=== PATIENT | female | born 1960 | race Caucasian/White ===

== ENCOUNTER 2022-12-31 22:56 | Observation (INO) | payer OTHER ==
[2023-01-01] MEDS ORDERED: Dextrose 5% in Water 1,000 ML IV PRN (02:54)
[2023-01-01] MEDS ORDERED: Acetaminophen 325 MG TAB PO PRN (02:54)
[2023-01-01] MEDS ORDERED: Dextrose 50% Abboject 50 ML SYRINGE SLOW IVP PRN (02:54)
[2023-01-01] MEDS ORDERED: Ondansetron ODT 4 MG TAB PO PRN (02:54)
[2023-01-01] MEDS ORDERED: Acetaminophen 650 MG Suppository PR PRN (02:54)
[2023-01-01] MEDS ORDERED: Nitroglycerin 0.4 MG TAB (25 Tab Bottle) SL PRN (02:54)
[2023-01-01] MEDS ORDERED: HumaLOG 300 UNITS/3 ML VIAL SC PRN (02:54)
[2023-01-01 03:22] VITALS: BMI 36.1
[2023-01-01] MEDS: Ondansetron PF 4 MG/2 ML Vial IVP PRN ×2 (03:35→18:35)
[2023-01-01] MEDS: Fioricet 325/50/40 mg Tablet PO PRN ×2 (04:19→20:26)
[2023-01-01] MEDS ORDERED: hydrALAZINE 20 MG/ML VIAL SLOW IVP PRN (04:26)
[2023-01-01 05:25] LABS: #Basophils 0.1 thou/uL (0.0-0.2); #Eosinphils 0.2 thou/uL (0.0-0.7); #Lymphocytes 1.6 thou/uL (1.20-3.40); #Monocytes 0.5 thou/uL (0.11-0.59); #Neutrophils 4.4 thou/uL (1.40-6.50); %Basophils 0.8 % (0.0-1.0); %Eosinophils 2.7 % (0.0-10.0); %Lymphocytes 23.5 % (21.0-51.0); %Monocytes 7.3 % (0.0-10.0); %Neutrophils 65.8 % (42.0-75.0); Hemoglobin 10.5 g/dL (12.0-16.0); Mean Corpuscular HGB CONC 32.6 g/dL (32.0-36.0); Mean Corpuscular Hemoglobin 28.6 pg (27.0-31.0); Mean Corpuscular Volume 87.6 fl (78.0-98.0); Mean Platelet Volume 7.9 fL (7.4-10.4); Platelet Count 238 10x3/uL (130-400); RBC Distribution Width 13.8 % (11.5-14.5); Red Blood Cell (RBC) Count 3.69 mill/uL (4.20-5.40); White Blood Cell (WBC) Count 6.7 10x3/uL (4.8-10.8)
[2023-01-01 05:47] LABS: Anion Gap 14 mmol/L (10-20); BUN (Urea Nitrogen) 17 mg/dL (9.8-20.1); Calc. Creatinine Clearance 110 mL/min (70-130); Calcium 8.4 mg/dL (7.8-10.44); Carbon Dioxide 24 mmol/L (23-31); Chloride 101 mmol/L (98-107); Estimated GFR 95; Glucose 225 mg/dL (80-115); Potassium 3.2 mmol/L (3.5-5.1); Sodium 136 mmol/L (136-145)
[2023-01-01 05:52] LABS: Troponin I 0.012 ng/mL (< 0.028)
[2023-01-01] MEDS ORDERED: Electrolyte Replacement Protocol 1 EACH FS SCH (06:30)
[2023-01-01] MEDS: HumaLOG 300 UNITS/3 ML VIAL SC PRN ×2 (06:30→21:18)
[2023-01-01] MEDS ORDERED: diphenhydrAMINE 50 MG in Sodium Chloride 0.9% 50 ML IVPB SCH (08:00)
[2023-01-01] MEDS ORDERED: Butorphanol Tartrate 1 MG/ML VIAL SLOW IVP PRN (08:06)
[2023-01-01] MEDS ORDERED: SUMAtriptan Succinate 6 MG/0.5 ML VIAL SC SCH ×2 (08:15→16:45)
[2023-01-01] MEDS: Prazosin HCl 1 MG CAP PO SCH (08:37)
[2023-01-01] MEDS: Potassium Chloride 20 MEQ in Premix Bag 1 BAG IVPB SCH ×2 (08:39→11:18)
[2023-01-01] MEDS: Aspirin 81 mg Enteric Coated Tablet PO SCH (08:49)
[2023-01-01] MEDS: Escitalopram Oxalate 10 mg Tablet PO SCH (08:49)
[2023-01-01] MEDS: busPIRone HCl 10 MG TAB PO SCH ×2 (08:49→20:27)
[2023-01-01] MEDS ORDERED: Insulin Glargine 30 UNITS/0.3 ML VIAL SC SCH ×3 (09:00→21:00)
[2023-01-01] MEDS ORDERED: Non-Formulary Item 1 EACH (Escitalopram Oxalate [Escitalopram Oxalate] 5 MG Tablet) PO SCH (09:00)
[2023-01-01] MEDS: Lisinopril 10 MG TAB PO SCH (09:55)
[2023-01-01] MEDS ORDERED: Dexamethasone 4 mg/ml Vial SLOW IVP SCH (16:45)
[2023-01-01] MEDS: FENTANYL 50 MCG/ML 1 ML VIAL SLOW IVP PRN ×2 (17:44→21:31)
[2023-01-01] MEDS: Promethazine HCl 25 MG in Sodium Chloride 0.9% 50 ML IVPB PRN (20:25)
[2023-01-01] MEDS: tiZANidine HCl 4 MG TAB PO PRN (20:27)
[2023-01-01] MEDS ORDERED: QUEtiapine 25 MG TAB PO SCH (21:00)
[2023-01-01] MEDS ORDERED: Atorvastatin Calcium 40 MG TAB PO SCH (21:00)
[2023-01-01] MEDS ORDERED: Non-Formulary Item 1 EACH (Quetiapine Fumarate [Seroquel] 50 MG Tablet) PO SCH (21:00)
[2023-01-02] MEDS: FENTANYL 50 MCG/ML 1 ML VIAL SLOW IVP PRN ×3 (02:02→12:38)
[2023-01-02 04:56] LABS: #Lymphocytes 0.7 thou/uL (1.20-3.40); #Monocytes 0.2 thou/uL (0.11-0.59); #Neutrophils 6.2 thou/uL (1.40-6.50); %Eosinophils 0.2 % (0.0-10.0); %Lymphocytes 9.7 % (21.0-51.0); %Monocytes 2.3 % (0.0-10.0); %Neutrophils 87.8 % (42.0-75.0); Mean Corpuscular HGB CONC 32.1 g/dL (32.0-36.0); Mean Corpuscular Hemoglobin 28.4 pg (27.0-31.0); Mean Corpuscular Volume 88.6 fl (78.0-98.0); Platelet Count 251 10x3/uL (130-400); RBC Distribution Width 13.6 % (11.5-14.5); Red Blood Cell (RBC) Count 3.86 mill/uL (4.20-5.40); White Blood Cell (WBC) Count 7.1 10x3/uL (4.8-10.8)
[2023-01-02 05:03] LABS: Hemoglobin A1c 9.8 % (4.0-6.0)
[2023-01-02 05:24] LABS: Anion Gap 15 mmol/L (10-20); BUN (Urea Nitrogen) 16 mg/dL (9.8-20.1); Calc. Creatinine Clearance 94 mL/min (70-130); Calcium 8.6 mg/dL (7.8-10.44); Carbon Dioxide 19 mmol/L (23-31); Cardiac Risk 2.3 (Less than 4.5); Chloride 102 mmol/L (98-107); Cholesterol 168 mg/dl (< 200 Desired); Estimated GFR 79; HDL Cholesterol 74 mg/dL (>60 Neg Risk); LDL Cholesterol, Calculated 83 mg/dL; Magnesium 1.7 mg/dL (1.6-2.6); Potassium 4.4 mmol/L (3.5-5.1); Sodium 132 mmol/L (136-145); Triglycerides 55 mg/dL (Less than 150)
[2023-01-02 05:29] LABS: Glucose 508 mg/dL (80-115)
[2023-01-02] MEDS: HumaLOG 300 UNITS/3 ML VIAL SC PRN ×2 (06:00→15:07)
[2023-01-02] MEDS ORDERED: NPH, Human Insulin Isophane 300 UNIT/3 ML VIAL SC SCH (07:30)
[2023-01-02] MEDS ORDERED: Magnesium 2 GM/50 ML(in water) 2 GM in Premix Bag 1 BAG IVPB SCH (08:00)
[2023-01-02] MEDS: busPIRone HCl 10 MG TAB PO SCH (09:29)
[2023-01-02] MEDS: Lisinopril 10 MG TAB PO SCH (09:29)
[2023-01-02] MEDS: Aspirin 81 mg Enteric Coated Tablet PO SCH (09:29)
[2023-01-02] MEDS: Escitalopram Oxalate 10 mg Tablet PO SCH (09:29)
[2023-01-02] MEDS: Prazosin HCl 1 MG CAP PO SCH (09:37)
[2023-01-02] MEDS: Promethazine HCl 25 MG in Sodium Chloride 0.9% 50 ML IVPB PRN (09:38)
[2023-01-02] MEDS: tiZANidine HCl 4 MG TAB PO PRN (09:45)
[2023-01-02 16:34] VITALS: BP 117/67; TEMP 97.8
[2023-01-02] MEDS ORDERED: Insulin Glargine 30 UNITS/0.3 ML VIAL SC SCH (21:00)
[2023-01-03] MEDS ORDERED: predniSONE 20 MG TAB PO SCH (08:00)
== END 2023-01-02 16:35 | disposition home or self-care (01) ==
LOC: 2NO 01-01 02:22
PROVIDERS: ADMIT Student in an Organized Health Care Education/Training Program; ATTEND Family Medicine
DX: R07.89 Other chest pain (principal); R53.1 Weakness; I69.954 Hemiplegia and hemiparesis following unspecified cerebrovascular disease affecting left non-dominant side; E87.6 Hypokalemia; Z20.822 Contact with and (suspected) exposure to COVID-19; I10 Essential (primary) hypertension; E78.5 Hyperlipidemia, unspecified; E11.9 Type 2 diabetes mellitus without complications; M79.7 Fibromyalgia; G89.29 Other chronic pain; G43.909 Migraine, unspecified, not intractable, without status migrainosus; Z88.5 Allergy status to narcotic agent; Z88.8 Allergy status to other drugs, medicaments and biological substances; Z79.4 Long term (current) use of insulin; Z79.84 Long term (current) use of oral hypoglycemic drugs; Z79.899 Other long term (current) drug therapy
CPT/HCPCS: 36415; 36416; 70551; 78452; 80048; 80061; 83036; 83735; 84443; 84484; 85025; 93017; 96365; 96372; 96375; 96376; A9500; G0378; J1100; J1200; J1815; J2405; J2550; J3010; J3030; J3475; J3480; Q0162; U0003; U0005

== ENCOUNTER 2023-01-08 17:37 | Inpatient (IN) | payer OTHER ==
[2023-01-08 18:07] LABS: #Eosinphils 0.1 thou/uL (0.0-0.7); #Lymphocytes 1.9 thou/uL (1.20-3.40); #Monocytes 0.5 thou/uL (0.11-0.59); #Neutrophils 5.3 thou/uL (1.40-6.50); %Basophils 0.2 % (0.0-1.0); %Eosinophils 1.3 % (0.0-10.0); %Lymphocytes 23.7 % (21.0-51.0); %Monocytes 6.4 % (0.0-10.0); %Neutrophils 68.4 % (42.0-75.0); Mean Corpuscular HGB CONC 31.6 g/dL (32.0-36.0); Mean Corpuscular Hemoglobin 27.9 pg (27.0-31.0); Mean Corpuscular Volume 88.5 fl (78.0-98.0); Platelet Count 286 10x3/uL (130-400); RBC Distribution Width 13.6 % (11.5-14.5); Red Blood Cell (RBC) Count 3.93 mill/uL (4.20-5.40); White Blood Cell (WBC) Count 7.8 10x3/uL (4.8-10.8)
[2023-01-08 18:19] LABS: INR-International Normal Ratio 0.9; Prothrombin Time 12.3 sec (12.0-14.7)
[2023-01-08 18:41] LABS: ALT (SGPT) 13 U/L (8-55); AST (SGOT) 15 U/L (5-34); Albumin 3.7 g/dL (3.4-4.8); Alkaline Phosphatase 87 U/L (40-110); Anion Gap 14 mmol/L (10-20); BUN (Urea Nitrogen) 16 mg/dL (9.8-20.1); Bilirubin, Total 0.3 mg/dL (0.2-1.2); CK (CPK) 39 U/L (29-168); Calc. Creatinine Clearance 0 mL/min (70-130); Calcium 9.2 mg/dL (7.8-10.44); Carbon Dioxide 22 mmol/L (23-31); Chloride 102 mmol/L (98-107); Estimated GFR 81; Globulin 2.6 g/dL (2.4-3.5); Glucose 194 mg/dL (80-115); Potassium 3.4 mmol/L (3.5-5.1); Protein, Total 6.3 g/dL (5.8-8.1); Sodium 135 mmol/L (136-145)
[2023-01-08] MEDS ORDERED: Tenecteplase 50 MG ONE (19:41)
[2023-01-08] MEDS ORDERED: Ondansetron PF 4 MG/2 ML Vial IVP PRN (20:15)
[2023-01-08 20:55] VITALS: BMI 38.7
[2023-01-08] MEDS ORDERED: Labetalol HCl 100 MG/20 ML VIAL SLOW IVP PRN (20:56)
[2023-01-08] MEDS ORDERED: [UNRECOGNIZED DRUG - REMARK] FS SCH (21:01)
[2023-01-08] MEDS ORDERED: niCARdipine 25 MG in Sodium Chloride 0.9% 250 ML 250 ML IVPB PRN (21:01)
[2023-01-08] MEDS ORDERED: HumaLOG 300 UNITS/3 ML VIAL SC SCH (21:30)
[2023-01-08] MEDS ORDERED: Electrolyte Replacement Protocol FS PRN (21:30)
[2023-01-08] MEDS ORDERED: Morphine 2 MG/ML VIAL SLOW IVP PRN (23:59)
[2023-01-09] MEDS: hydrALAZINE 20 MG/ML VIAL SLOW IVP PRN ×2 (00:39→11:07)
[2023-01-09] MEDS: Morphine 2 MG/ML VIAL SLOW IVP PRN ×5 (02:20→21:02)
[2023-01-09] MEDS ORDERED: Potassium Bicarbonate/Cit Ac 20 MEQ TAB PO SCH (08:15)
[2023-01-09] MEDS: Famotidine/PF 20 mg/2ml Vial SLOW IVP SCH ×2 (08:18→21:03)
[2023-01-09] MEDS ORDERED: FLU VACC QS2022-23(6MO UP)/PF 60 MCG/0.5 ML SYRINGE IM ONE (09:00)
[2023-01-09] MEDS: Ondansetron PF 4 MG/2 ML Vial IVP PRN ×2 (12:51→21:03)
[2023-01-09] MEDS: Fioricet 325/50/40 mg Tablet PO PRN ×2 (13:05→16:21)
[2023-01-09 17:46] LABS: Potassium 3.5 mmol/L (3.5-5.1)
[2023-01-09] MEDS ORDERED: Atorvastatin Calcium 40 MG TAB PO SCH (21:00)
[2023-01-09] MEDS: HumaLOG 300 UNITS/3 ML VIAL SC PRN (23:07)
[2023-01-10] MEDS: HumaLOG 300 UNITS/3 ML VIAL SC PRN ×2 (02:21→05:10)
[2023-01-10 04:21] LABS: #Eosinphils 0.1 thou/uL (0.0-0.7); #Monocytes 0.6 thou/uL (0.11-0.59); #Neutrophils 4.8 thou/uL (1.40-6.50); %Basophils 0.3 % (0.0-1.0); %Eosinophils 1.9 % (0.0-10.0); %Lymphocytes 15.1 % (21.0-51.0); %Neutrophils 73.7 % (42.0-75.0); Hemoglobin 11.4 g/dL (12.0-16.0); Mean Corpuscular HGB CONC 32.8 g/dL (32.0-36.0); Mean Corpuscular Hemoglobin 28.9 pg (27.0-31.0); Mean Corpuscular Volume 87.9 fl (78.0-98.0); Mean Platelet Volume 7.8 fL (7.4-10.4); Platelet Count 270 10x3/uL (130-400); RBC Distribution Width 13.6 % (11.5-14.5); Red Blood Cell (RBC) Count 3.96 mill/uL (4.20-5.40); White Blood Cell (WBC) Count 6.5 10x3/uL (4.8-10.8)
[2023-01-10 04:43] LABS: Anion Gap 10 mmol/L (10-20); BUN (Urea Nitrogen) 11 mg/dL (9.8-20.1); Calc. Creatinine Clearance 101 mL/min (70-130); Carbon Dioxide 28 mmol/L (23-31); Chloride 99 mmol/L (98-107); Estimated GFR 82; Glucose 298 mg/dL (80-115); Potassium 3.4 mmol/L (3.5-5.1); Sodium 134 mmol/L (136-145)
[2023-01-10] MEDS: Fioricet 325/50/40 mg Tablet PO PRN ×3 (05:14→15:44)
[2023-01-10] MEDS ORDERED: HumaLOG 300 UNITS/3 ML VIAL SC PRN (07:50)
[2023-01-10] MEDS ORDERED: Potassium Chloride 20 MEQ TAB PO SCH (08:00)
[2023-01-10] MEDS: Morphine 2 MG/ML VIAL SLOW IVP PRN (08:03)
[2023-01-10] MEDS ORDERED: Dextrose 5% in Water 1,000 ML IV PRN (08:15)
[2023-01-10] MEDS ORDERED: Dextrose 50% Abboject 50 ML SYRINGE IVP PRN (08:15)
[2023-01-10] MEDS ORDERED: Aspirin Chewable 81 MG TAB PO SCH (09:00)
[2023-01-10] MEDS: Famotidine/PF 20 mg/2ml Vial SLOW IVP SCH (09:51)
[2023-01-10 11:56] VITALS: BP 116/85
[2023-01-10 12:30] VITALS: TEMP 97.6
[2023-01-10] MEDS ORDERED: tiZANidine HCl 4 MG TAB PO PRN (15:07)
== END 2023-01-10 16:10 | disposition home or self-care (01) | DRG 62 ==
LOC: ERS 17:37 → CCU 18:55 → NEURO 01-10 13:58
PROVIDERS: ADMIT Internal Medicine; ATTEND Internal Medicine
DX: I63.9 Cerebral infarction, unspecified (principal); E87.1 Hypo-osmolality and hyponatremia; G81.94 Hemiplegia, unspecified affecting left nondominant side; E87.20 Acidosis, unspecified; I10 Essential (primary) hypertension; D63.8 Anemia in other chronic diseases classified elsewhere; E10.40 Type 1 diabetes mellitus with diabetic neuropathy, unspecified; M79.7 Fibromyalgia; E87.6 Hypokalemia; R07.89 Other chest pain; G43.909 Migraine, unspecified, not intractable, without status migrainosus; R29.810 Facial weakness; R29.707 NIHSS score 7; F41.9 Anxiety disorder, unspecified; Z88.8 Allergy status to other drugs, medicaments and biological substances; Z88.5 Allergy status to narcotic agent; Z79.4 Long term (current) use of insulin; Z79.899 Other long term (current) drug therapy; Z79.84 Long term (current) use of oral hypoglycemic drugs; Z79.82 Long term (current) use of aspirin; Z90.49 Acquired absence of other specified parts of digestive tract; Z90.710 Acquired absence of both cervix and uterus; Z87.891 Personal history of nicotine dependence; Z98.890 Other specified postprocedural states; I69.392 Facial weakness following cerebral infarction; Z92.82 Status post administration of tPA (rtPA) in a different facility within the last 24 hours prior to admission to current facility; Z88.6 Allergy status to analgesic agent
CPT/HCPCS: 36415; 36416; 70450; 70551; 71045; 80048; 82550; 84132; 85025; 85730; 93005; 93306; J0360; J1815; J2272; J2405; J3101; S0028

== ENCOUNTER 2023-01-14 07:49 | Observation (INO) | payer OTHER ==
[2023-01-14 08:36] LABS: #Eosinphils 0.3 thou/uL (0.0-0.7); #Lymphocytes 1.2 thou/uL (1.20-3.40); #Monocytes 0.7 thou/uL (0.11-0.59); #Neutrophils 3.6 thou/uL (1.40-6.50); %Basophils 0.8 % (0.0-1.0); %Eosinophils 4.4 % (0.0-10.0); %Lymphocytes 20.9 % (21.0-51.0); %Monocytes 12.2 % (0.0-10.0); %Neutrophils 61.7 % (42.0-75.0); Mean Corpuscular HGB CONC 31.6 g/dL (32.0-36.0); Mean Corpuscular Hemoglobin 28.3 pg (27.0-31.0); Mean Corpuscular Volume 89.8 fl (78.0-98.0); Mean Platelet Volume 8.3 fL (7.4-10.4); Platelet Count 203 10x3/uL (130-400); RBC Distribution Width 13.4 % (11.5-14.5); Red Blood Cell (RBC) Count 3.88 mill/uL (4.20-5.40); White Blood Cell (WBC) Count 5.8 10x3/uL (4.8-10.8)
[2023-01-14 08:53] LABS: Anion Gap 17 mmol/L (10-20); BUN (Urea Nitrogen) 19 mg/dL (9.8-20.1); Calc. Creatinine Clearance 0 mL/min (70-130); Carbon Dioxide 21 mmol/L (23-31); Chloride 100 mmol/L (98-107); Potassium 4.1 mmol/L (3.5-5.1); Sodium 134 mmol/L (136-145)
[2023-01-14 08:54] LABS: ALT (SGPT) 16 U/L (8-55); AST (SGOT) 16 U/L (5-34); Albumin 4.3 g/dL (3.4-4.8); Alkaline Phosphatase 130 U/L (40-110); Bilirubin, Total 0.4 mg/dL (0.2-1.2); Calcium 9.5 mg/dL (7.8-10.44); Estimated GFR 61; Glucose 296 mg/dL (80-115); Lipase 14 U/L (8-78); Protein, Total 7.3 g/dL (5.8-8.1)
[2023-01-14 08:56] LABS: Acetaminophen Less than 10.0 mcg/mL (10.0-30.0); Alcohol Less than 10 mg/dL (Less than 10); CK (CPK) 27 U/L (29-168); Salicylate Less than 8.0 mg/dL (15.0-30.0)
[2023-01-14 09:09] LABS: Bacteria/HPF None Seen HPF (None Seen); Bilirubin Negative (Negative); Blood, Urine Negative (Negative); Clarity Clear (Clear); Glucose, Urine (Dipstick) 500 mg/dL (Negative); Ketone, Urine Negative (Negative); Leukocyte 75 Leu/uL (Negative); Nitrite Negative (Negative); Protein, Urine (Dipstick) 10 mg/dL (Neg-Trace); RBC/HPF 0-3 HPF (0-3); Specific Gravity, Urine 1.024 (1.002-1.036); Squamous Epithelial None Seen HPF (0-3); Urobilinogen Normal mg/dL (Less than 2); pH, Urine 5.5 (5.0-9.0)
[2023-01-14 09:17] LABS: Amphetamine Not Detected (NotDetected); Barbiturates Screen Detected (NotDetected); Benzodiazepine Screen Not Detected (NotDetected); Cocaine Metabolite Screen Not Detected (NotDetected); Methadone Not Detected (NotDetected); Methamphetamine Not Detected (NotDetected); Opiate Screen Not Detected (NotDetected); Oxycodone Screen Not Detected (NotDetected); Phencyclidine (PCP) Not Detected (NotDetected); THC/Cannabinoid Screen Not Detected (NotDetected); Tricyclic Screen Not Detected (NotDetected)
[2023-01-14 10:06] LABS: SARS-CoV-2 NAA Rapid Test Not Detected (NotDetected)
[2023-01-14] MEDS ORDERED: Aspirin Chewable 81 MG TAB ONE (10:30)
[2023-01-14 11:41] LABS: Lactic Acid 3.4 mmol/L (0.5-2.2)
[2023-01-14 11:51] LABS: Troponin I Less than 0.010 ng/mL (< 0.028)
[2023-01-14] MEDS ORDERED: Acetaminophen 650 MG Suppository PR PRN (11:51)
[2023-01-14] MEDS ORDERED: Dextrose 50% Abboject 50 ML SYRINGE SLOW IVP PRN (11:51)
[2023-01-14] MEDS ORDERED: HumaLOG 300 UNITS/3 ML VIAL SC PRN ×2 (11:51)
[2023-01-14] MEDS ORDERED: Ondansetron ODT 4 MG TAB PO PRN (11:51)
[2023-01-14] MEDS ORDERED: Acetaminophen 325 MG TAB PO PRN (11:51)
[2023-01-14] MEDS ORDERED: Dextrose 5% in Water 1,000 ML IV PRN (11:51)
[2023-01-14] MEDS ORDERED: Iopamidol-370 76% 500 ML MDV (1 ML CHARGE) ONE (13:37)
[2023-01-14 15:09] VITALS: BMI 37.0
[2023-01-14] MEDS: Sodium Chloride 0.9% 1,000 ML IV SCH ×2 (15:21→21:26)
[2023-01-14 15:30] LABS: Troponin I Less than 0.010 ng/mL (< 0.028)
[2023-01-14] MEDS ORDERED: Butalbital 50 MG/Aspirin 325 MG/Caffeine 40 MG CAPSULE PO PRN (17:22)
[2023-01-14] MEDS: Fioricet 325/50/40 mg Tablet PO PRN ×2 (18:39→22:53)
[2023-01-14] MEDS ORDERED: Loperamide HCl 2 MG CAP PO PRN ×2 (22:32)
[2023-01-14] MEDS: Ondansetron PF 4 MG/2 ML Vial IVP PRN (23:09)
[2023-01-15] MEDS ORDERED: SUMAtriptan Succinate 6 MG/0.5 ML VIAL SC SCH ×2 (00:30→02:00)
[2023-01-15] MEDS ORDERED: Ketorolac Tromethamine 30 MG/ML VIAL IVP SCH (01:45)
[2023-01-15] MEDS ORDERED: diphenhydrAMINE 50 MG/ML VIAL IVP SCH (02:00)
[2023-01-15] MEDS ORDERED: Metoclopramide HCl 10 MG/2 ML VIAL IVP SCH (02:00)
[2023-01-15 05:44] LABS: #Eosinphils 0.3 thou/uL (0.0-0.7); #Lymphocytes 1.6 thou/uL (1.20-3.40); #Monocytes 0.4 thou/uL (0.11-0.59); #Neutrophils 2.1 thou/uL (1.40-6.50); %Basophils 0.3 % (0.0-1.0); %Eosinophils 6.8 % (0.0-10.0); %Lymphocytes 35.6 % (21.0-51.0); %Monocytes 9.6 % (0.0-10.0); %Neutrophils 47.7 % (42.0-75.0); Hemoglobin 10.4 g/dL (12.0-16.0); Mean Corpuscular HGB CONC 32.3 g/dL (32.0-36.0); Mean Corpuscular Hemoglobin 28.4 pg (27.0-31.0); Mean Platelet Volume 7.8 fL (7.4-10.4); Platelet Count 244 10x3/uL (130-400); RBC Distribution Width 13.5 % (11.5-14.5); Red Blood Cell (RBC) Count 3.67 mill/uL (4.20-5.40); White Blood Cell (WBC) Count 4.4 10x3/uL (4.8-10.8)
[2023-01-15 06:08] LABS: Anion Gap 9 mmol/L (10-20); BUN (Urea Nitrogen) 13 mg/dL (9.8-20.1); Calc. Creatinine Clearance 106 mL/min (70-130); Calcium 8.6 mg/dL (7.8-10.44); Carbon Dioxide 25 mmol/L (23-31); Chloride 108 mmol/L (98-107); Estimated GFR 92; Glucose 85 mg/dL (80-115); Potassium 3.6 mmol/L (3.5-5.1); Sodium 138 mmol/L (136-145)
[2023-01-15] MEDS: Fioricet 325/50/40 mg Tablet PO PRN ×2 (09:20→14:16)
[2023-01-15] MEDS: Ondansetron PF 4 MG/2 ML Vial IVP PRN (09:20)
[2023-01-15 12:57] LABS: Lactic Acid 1.4 mmol/L (0.5-2.2)
[2023-01-15 16:25] VITALS: BP 151/89; TEMP 98.3
== END 2023-01-15 16:50 | disposition home or self-care (01) ==
LOC: ERS 07:49 → ERHOLD 11:08 → NEURO 14:41
PROVIDERS: ADMIT Family Medicine; ATTEND Family Medicine
DX: I95.9 Hypotension, unspecified (principal); R19.7 Diarrhea, unspecified; E10.40 Type 1 diabetes mellitus with diabetic neuropathy, unspecified; M79.7 Fibromyalgia; I10 Essential (primary) hypertension; D64.9 Anemia, unspecified; E87.1 Hypo-osmolality and hyponatremia; E78.5 Hyperlipidemia, unspecified; E86.0 Dehydration; F15.11 Other stimulant abuse, in remission; F12.11 Cannabis abuse, in remission; F14.11 Cocaine abuse, in remission; Z86.73 Personal history of transient ischemic attack (TIA), and cerebral infarction without residual deficits; Z87.891 Personal history of nicotine dependence; Z79.82 Long term (current) use of aspirin; Z79.84 Long term (current) use of oral hypoglycemic drugs; Z79.899 Other long term (current) drug therapy; Z88.5 Allergy status to narcotic agent; Z88.6 Allergy status to analgesic agent; Z88.8 Allergy status to other drugs, medicaments and biological substances; Z91.018 Allergy to other foods; Z20.822 Contact with and (suspected) exposure to COVID-19
CPT/HCPCS: 36415; 36416; 70450; 71045; 71275; 80048; 80053; 80306; 80307; 81003; 81015; 82140; 82550; 83605; 83690; 83880; 84443; 84484; 85025; 85379; 87040; 87086; 87324; 87449; 93005; 96372; 96374; 96375; 96376; G0378; J1200; J2405; J3030; J7050; Q9967

== ENCOUNTER 2023-01-23 18:59 | Inpatient (IN) | payer OTHER ==
[2023-01-23 19:44] LABS: #Basophils 0.1 thou/uL (0.0-0.2); #Eosinphils 0.1 thou/uL (0.0-0.7); #Lymphocytes 1.6 thou/uL (1.20-3.40); #Monocytes 0.4 thou/uL (0.11-0.59); #Neutrophils 4.5 thou/uL (1.40-6.50); %Basophils 0.8 % (0.0-1.0); %Eosinophils 1.7 % (0.0-10.0); %Lymphocytes 23.9 % (21.0-51.0); %Neutrophils 67.7 % (42.0-75.0); Hemoglobin 11.4 g/dL (12.0-16.0); Mean Corpuscular HGB CONC 32.8 g/dL (32.0-36.0); Mean Corpuscular Hemoglobin 29.2 pg (27.0-31.0); Mean Corpuscular Volume 88.8 fl (78.0-98.0); Platelet Count 223 10x3/uL (130-400); RBC Distribution Width 13.4 % (11.5-14.5); White Blood Cell (WBC) Count 6.6 10x3/uL (4.8-10.8)
[2023-01-23 19:47] LABS: Bacteria/HPF None Seen HPF (None Seen); Bilirubin Negative (Negative); Blood, Urine Negative (Negative); Clarity Clear (Clear); Glucose, Urine (Dipstick) Greater than 1000 mg/dL (Negative); Ketone, Urine Negative (Negative); Leukocyte 75 Leu/uL (Negative); Nitrite Negative (Negative); Protein, Urine (Dipstick) Negative (Neg-Trace); RBC/HPF 0-3 HPF (0-3); Specific Gravity, Urine 1.023 (1.002-1.036); Squamous Epithelial 0-3 HPF (0-3); Urobilinogen Normal mg/dL (Less than 2); pH, Urine 5.5 (5.0-9.0)
[2023-01-23] MEDS ORDERED: Morphine 4 MG/ML VIAL ONE (20:02)
[2023-01-23] MEDS ORDERED: Ondansetron PF 4 MG/2 ML Vial ONE (20:02)
[2023-01-23 20:06] LABS: ALT (SGPT) 15 U/L (8-55); AST (SGOT) 15 U/L (5-34); Alkaline Phosphatase 122 U/L (40-110); Anion Gap 14 mmol/L (10-20); BUN (Urea Nitrogen) 18 mg/dL (9.8-20.1); Bilirubin, Total 0.2 mg/dL (0.2-1.2); Calc. Creatinine Clearance 0 mL/min (70-130); Calcium 9.5 mg/dL (7.8-10.44); Carbon Dioxide 23 mmol/L (23-31); Chloride 99 mmol/L (98-107); Estimated GFR 62; Globulin 2.9 g/dL (2.4-3.5); Potassium 3.9 mmol/L (3.5-5.1); Protein, Total 6.9 g/dL (5.8-8.1); Sodium 132 mmol/L (136-145)
[2023-01-23 20:11] LABS: Glucose 491 mg/dL (80-115)
[2023-01-23] MEDS ORDERED: Insulin Regular 300 UNITS/3 ML VIAL ONE (21:05)
[2023-01-23 22:53] VITALS: BMI 37.0
[2023-01-23] MEDS ORDERED: Albuterol 200 PUFF (6.7GM INHALER) INH PRN (23:04)
[2023-01-23] MEDS ORDERED: HumaLOG 300 UNITS/3 ML VIAL SC PRN (23:44)
[2023-01-23] MEDS ORDERED: Dextrose 5% in Water 1,000 ML IV PRN (23:44)
[2023-01-23] MEDS ORDERED: Dextrose 50% Abboject 50 ML SYRINGE SLOW IVP PRN (23:44)
[2023-01-23] MEDS ORDERED: Ondansetron ODT 4 MG TAB PO PRN (23:52)
[2023-01-23] MEDS ORDERED: Nitroglycerin 2% Ointment 1 INCH/1 GM Packet TOP PRN (23:52)
[2023-01-23 23:56] LABS: Amphetamine Not Detected (NotDetected); Barbiturates Screen Detected (NotDetected); Benzodiazepine Screen Not Detected (NotDetected); Cocaine Metabolite Screen Not Detected (NotDetected); Methadone Not Detected (NotDetected); Methamphetamine Not Detected (NotDetected); Opiate Screen Not Detected (NotDetected); Oxycodone Screen Not Detected (NotDetected); Phencyclidine (PCP) Not Detected (NotDetected); THC/Cannabinoid Screen Not Detected (NotDetected); Tricyclic Screen Not Detected (NotDetected)
[2023-01-24] MEDS: Ondansetron PF 4 MG/2 ML Vial IVP PRN ×2 (00:05→05:34)
[2023-01-24 01:24] LABS: Troponin I Less than 0.010 ng/mL (< 0.028)
[2023-01-24] MEDS: Acetaminophen 325 MG TAB PO PRN ×2 (04:10→15:31)
[2023-01-24 04:46] LABS: Troponin I Less than 0.010 ng/mL (< 0.028)
[2023-01-24] MEDS: busPIRone HCl 10 MG TAB PO SCH ×2 (08:43→20:20)
[2023-01-24] MEDS: metFORMIN 500 MG TAB PO SCH ×2 (08:43→18:34)
[2023-01-24] MEDS: Atorvastatin Calcium 40 MG TAB PO SCH (08:43)
[2023-01-24] MEDS: Multivitamin W/ Minerals 1 TAB PO SCH (08:43)
[2023-01-24] MEDS: Magnesium Oxide 400 MG TAB PO SCH (08:43)
[2023-01-24] MEDS: Aspirin Chewable 81 MG TAB PO SCH (08:43)
[2023-01-24] MEDS: Escitalopram Oxalate 10 mg Tablet PO SCH (08:43)
[2023-01-24] MEDS: Prazosin HCl 1 MG CAP PO SCH (08:44)
[2023-01-24] MEDS: Insulin Glargine 30 UNITS/0.3 ML VIAL SC SCH ×2 (08:44→20:19)
[2023-01-24] MEDS ORDERED: tiZANidine HCl 4 MG TAB PO SCH ×2 (09:00→20:30)
[2023-01-24] MEDS ORDERED: Morphine 2 MG/ML VIAL SLOW IVP SCH (09:30)
[2023-01-24] MEDS: Gabapentin 100 MG CAP PO SCH (20:20)
[2023-01-24] MEDS ORDERED: QUEtiapine 25 MG TAB PO SCH (21:00)
[2023-01-25] MEDS: Acetaminophen 325 MG TAB PO PRN (05:28)
[2023-01-25] MEDS: Insulin Glargine 30 UNITS/0.3 ML VIAL SC SCH (08:33)
[2023-01-25] MEDS: metFORMIN 500 MG TAB PO SCH ×2 (08:35→17:43)
[2023-01-25] MEDS: Gabapentin 100 MG CAP PO SCH (08:36)
[2023-01-25] MEDS: Magnesium Oxide 400 MG TAB PO SCH (08:36)
[2023-01-25] MEDS: Atorvastatin Calcium 40 MG TAB PO SCH (08:36)
[2023-01-25] MEDS: busPIRone HCl 10 MG TAB PO SCH (08:36)
[2023-01-25] MEDS: Aspirin Chewable 81 MG TAB PO SCH (08:36)
[2023-01-25] MEDS: Escitalopram Oxalate 10 mg Tablet PO SCH (08:36)
[2023-01-25] MEDS: Multivitamin W/ Minerals 1 TAB PO SCH (08:37)
[2023-01-25] MEDS: Prazosin HCl 1 MG CAP PO SCH (08:37)
[2023-01-25] MEDS ORDERED: tiZANidine HCl 4 MG TAB PO SCH (09:00)
[2023-01-25 15:59] VITALS: BP 138/84; TEMP 97.8
== END 2023-01-25 19:44 | disposition home or self-care (01) | DRG 313 ==
LOC: ERS 18:59 → 2NO 20:35
PROVIDERS: ADMIT Student in an Organized Health Care Education/Training Program; ATTEND Internal Medicine
DX: R07.89 Other chest pain (principal); I20.0 Unstable angina; E78.5 Hyperlipidemia, unspecified; M79.7 Fibromyalgia; G43.909 Migraine, unspecified, not intractable, without status migrainosus; E11.65 Type 2 diabetes mellitus with hyperglycemia; F41.9 Anxiety disorder, unspecified; I45.10 Unspecified right bundle-branch block; F32.9 Major depressive disorder, single episode, unspecified; F43.10 Post-traumatic stress disorder, unspecified; F42.9 Obsessive-compulsive disorder, unspecified; Z88.8 Allergy status to other drugs, medicaments and biological substances; Z86.73 Personal history of transient ischemic attack (TIA), and cerebral infarction without residual deficits; Z88.6 Allergy status to analgesic agent; Z91.018 Allergy to other foods; Z79.4 Long term (current) use of insulin; Z79.84 Long term (current) use of oral hypoglycemic drugs; Z79.82 Long term (current) use of aspirin; Z79.899 Other long term (current) drug therapy; Z90.89 Acquired absence of other organs; Z90.49 Acquired absence of other specified parts of digestive tract; Z90.710 Acquired absence of both cervix and uterus; Z87.891 Personal history of nicotine dependence
CPT/HCPCS: 36415; 36416; 71045; 80053; 80306; 81003; 81015; 83690; 83880; 83970; 84443; 84484; 85025; 93005; 93010; 96374; 96375; J1815; J2270; J2272; J2405